=== PATIENT | male | born 1965 | race Two or more races ===

== ENCOUNTER 2016-08-08 11:27 | Emergency (ER) | payer BC, OTHER ==
[~2016-08-08] VITALS: Ht 175.3 cm; Wt 87.1 kg
[2016-08-08 11:51] VITALS: BP 102/66
== END 2016-08-08 14:30 | disposition left against medical advice (07) ==
LOC: ER 11:31
DX: R51 Headache (principal); Z53.21 Procedure and treatment not carried out due to patient leaving prior to being seen by health care provider
CPT/HCPCS: 93005